=== PATIENT | female | born 1985 | race Caucasian/White ===

== ENCOUNTER 2018-07-12 11:18 | Emergency (ER) | payer OTHER, MEDICAID ==
[~2018-07-12] VITALS: Ht 165.1 cm; Wt 88.5 kg
[~2018-07-12 11:18] MED LIST: BACTRIM DS TAB1 EACH PO; BENTYL 20 MG TA20 M1 PO; CIPRO500 MG PO; FLEXERIL PO; HYDROCODONE-AP1 EAC6 PO; IBUPROFEN 800800 M1 PO; IBUPROFEN 800800 MG PO; MIRALAX17 GM PO; NORCO 5-325 TA1 EACH PO; NORFLEX100 MG PO; No home meds; ONDANSETRON HCL4 M2 PO; PERCOCET 5-3251 EACH PO; PHENAZOPYRIDIN200 M2 PO; ROBAXIN 750 MG750 M1 PO; TRAMADOL-ACETA1 EACH; ZOLOFT 50 MG TA50 M1 PO
[2018-07-12] MEDS ORDERED: ESTRADIOL 1 MG T1 M1 PO (11:25)
[2018-07-12] MEDS ORDERED: ZOLOFT100 MG PO (11:25)
[2018-07-12] MEDS ORDERED: ACETAMINOPHEN-1 EAC1 PO (12:00)
[2018-07-12 12:05] VITALS: BP 116/71
== END 2018-07-12 12:06 | disposition home or self-care (01) ==
LOC: M.ERS 11:18
DX: M25.512 Pain in left shoulder (principal); F32.9 Major depressive disorder, single episode, unspecified; N80.9 Endometriosis, unspecified; Z90.89 Acquired absence of other organs; Z90.49 Acquired absence of other specified parts of digestive tract; Z90.710 Acquired absence of both cervix and uterus

== ENCOUNTER 2020-03-06 13:11 | Emergency (ER) | payer OTHER, MEDICAID ==
[~2020-03-06] VITALS: Ht 165.1 cm; Wt 86.2 kg
[~2020-03-06 13:11] MED LIST changes: +ACETAMINOPHEN-1 EAC1 PO; +ESTRADIOL 1 MG T1 M1 PO; +ZOLOFT100 MG PO
[2020-03-06] MEDS ORDERED: IBU600 MG PO (14:55)
[2020-03-06 15:27] VITALS: BP 147/77
== END 2020-03-06 15:27 | disposition home or self-care (01) ==
LOC: M.ERS 13:11
DX: S83.8X2A Sprain of other specified parts of left knee, initial encounter (principal); Z90.89 Acquired absence of other organs; W18.39XA Other fall on same level, initial encounter; Y93.89 Activity, other specified; Y92.89 Other specified places as the place of occurrence of the external cause; Y99.8 Other external cause status